=== PATIENT | female | born 1960 | race Caucasian/White ===

== ENCOUNTER 2017-06-22 14:35 | Emergency (ER) | payer MEDICAID, OTHER ==
[~2017-06-22] VITALS: Ht 157.5 cm; Wt 93.6 kg
[2017-06-22 14:48] LABS: GLUCOSE,POINT OF CARE 162 MG/DL (70-110)
[2017-06-22 17:29] VITALS: BP 142/80
== END 2017-06-22 17:40 | disposition home or self-care (01) ==
LOC: EMS 14:36
DX: S67.193A Crushing injury of left middle finger, initial encounter (principal); R03.0 Elevated blood-pressure reading, without diagnosis of hypertension; E11.9 Type 2 diabetes mellitus without complications; E03.9 Hypothyroidism, unspecified; W20.8XXA Other cause of strike by thrown, projected or falling object, initial encounter; Y93.89 Activity, other specified; Y92.89 Other specified places as the place of occurrence of the external cause; Y99.8 Other external cause status
CPT/HCPCS: 11740; 82962; 99284